=== PATIENT | female | born 1990 | race Caucasian/White ===

== ENCOUNTER 2020-08-25 17:34 | Emergency (ER) | payer SELFPAY ==
[2020-08-25 17:44] VITALS: BP 161/92; PULSE 99
--- NOTE | 2020-08-25 18:05 | EDM.PDOC ---
ED HPI GENERAL MEDICAL PROBLEM - General Chief Complaint: Upper Extremity Injury/Pain Stated Complaint: RT WRIST PAIN (FROM INJURY) Time Seen by Provider: 08/25/20 17:37 Source of Information: Reports: Patient History Limitations: Reports: No Limitations - History of Present Illness INITIAL COMMENTS - FREE TEXT/NARRATIVE: The patient presents withe right wrist pain and swelling. The patient said she let her dog out and he was on a bishop and he took off and pulled her off about 6 steps. This was on Tuesday. She did not hit her head or hurt her neck. She does have right wrist pain and swelling. She has been wearing a prefab velcro splint. She is right handed. She has no other injuries. Onset: Sudden Duration: Day(s): Location: Reports: Upper Extremity, Right (wrist) Quality: Reports: Sharp Severity: Moderate Improves with: Reports: None Worsens with: Reports: None Associated Symptoms: Reports: No Other Symptoms Right Wrist Pain Score (Numeric/FACES): 8 - Related Data Allergies Allergy/AdvReac Type Severity Reaction Status Date / Time No Known Allergies Allergy Verified 08/25/20 17:44 Home Meds: Home Meds . [No Known Home Meds] 08/25/20 [History] Past Medical History HEENT History: Reports: Impaired Vision Other HEENT History: glasses Neurological History: Reports: Migraines Dermatologic History: Reports: Eczema Social & Family History - Family History Family Medical History: No Pertinent Family History - Tobacco Use Tobacco Use Status *Q: Current Every Day Tobacco User Years of Tobacco use: 12 Packs/Tins Daily: 0.5 - Recreational Drug Use Recreational Drug Use: No - Living Situation & Occupation Living situation: Reports: Single Review of Systems - Review of Systems Review Of Systems: See Below Constitutional: Reports: No Symptoms Eyes: Reports: No Symptoms Ears: Reports: No Symptoms Nose: Reports: No Symptoms Mouth/Throat: Reports: No Symptoms Respiratory: Reports: No Symptoms Cardiovascular: Reports: No Symptoms GI/Abdominal: Reports: No Symptoms Genitourinary: Reports: No Symptoms Musculoskeletal: Reports: Other (wrist pain) ED EXAM, GENERAL - Physical Exam Exam: See Below Exam Limited By: No Limitations General Appearance: Alert, No Apparent Distress Ears: Normal External Exam Nose: Normal Inspection Head: Atraumatic, Normocephalic Neck: Normal Inspection, Supple, Non-Tender Respiratory/Chest: No Respiratory Distress, Lungs Clear, Normal Breath Sounds Cardiovascular: Regular Rate, Rhythm, No Edema, No Murmur GI/Abdominal: Soft, Non-Tender, No Organomegaly, No Mass Extremities: Other (Pain upon palpation to the right wrist with moderate edema. She has some numbnes in her fingers. She can move her fingers.) ED TRAUMA EXTREMITY PROCEDURES - Splinting Right Upper Extremity Splint Site: Right wrist Pre-Procedure NV Status: Normal Post-Procedure NV Status: Normal Splint Material: Fiberglass Splint Design: Volar, Sling Applied & Form Fitted By: Provider Provider Post-Splint Application NV Check: NV Status Normal, Good Position Complications: No Course - Vital Signs Last Recorded V/S: Last Vital Signs Temp 98.2 F 08/25/20 17:42 Pulse 99 08/25/20 17:42 Resp 16 08/25/20 17:42 BP 161/92 H 08/25/20 17:42 Pulse Ox 93 L 08/25/20 17:42 - Orders/Labs/Meds Orders: Active Orders 24 hr Category Date Time Status Wrist Comp Min 3V Rt [CR] Stat Exams 08/25/20 17:55 Taken - Re-Assessments/Exams Free Text/Narrative Re-Assessment/Exam: 08/25/20 18:05 I ordered an x-ray of her wrist. 08/25/20 18:26 Her x-ray shows a navicular bone fracture. I put a splint on her and sling. I will have her follow up with Dr Galvez. Departure - Departure Time of Disposition: 18:26 Disposition: Home, Self-Care 01 Condition: Good Clinical Impression: Fall Qualifiers: Encounter type: initial encounter Qualified Code(s): W19.XXXA - Unspecified fall, initial encounter Fracture of scaphoid of right wrist Qualifiers: Encounter type: initial encounter Scaphoid bone location: unspecified portion of scaphoid Fracture type: closed Fracture alignment: nondisplaced Qualified Code(s): S62.001A - Unspecified fracture of navicular [scaphoid] bone of right wrist, initial encounter for closed fracture - Discharge Information *PRESCRIPTION DRUG MONITORING PROGRAM REVIEWED*: Not Applicable *COPY OF PRESCRIPTION DRUG MONITORING REPORT IN PATIENT [place]: Not Applicable Referrals: PCP,Not In Area [Primary Care Provider] - Boaz Galvez MD [Physician] - 1 Week Forms: ED Department Discharge Additional Instructions: Ice your wrist for 15 minutes 3 times per day for 2 days. Take tylenol or motrin for pain. Follow up with Dr Galvez or one of his partners within a week. Please return if you are worse. Sepsis Event Note (ED) - Evaluation Sepsis Screening Result: No Definite Risk - Focused Exam Vital Signs: Vital Signs Temp Pulse Resp BP Pulse Ox 08/25/20 17:42 98.2 F 99 16 161/92 H 93 L - My Orders Last 24 Hours: My Active Orders 08/25/20 17:55 Wrist Comp Min 3V Rt [CR] Stat - Assessment/Plan Last 24 Hours: My Active Orders 08/25/20 17:55 Wrist Comp Min 3V Rt [CR] Stat
--- NOTE | 2020-08-26 08:07 | CR ---
Right wrist: 4 views of the right wrist were obtained. Comparison: No prior wrist exam is available. Joint spaces within the wrist are maintained. Small lucent line is identified within the mid one third navicular bone suspicious for nondisplaced fracture. Diffuse soft tissue swelling is seen. No additional fracture or other abnormality is appreciated. Impression: 1. Findings suspicious for nondisplaced navicular fracture. 2. Soft tissue swelling. Diagnostic code #3
== END 2020-08-25 18:34 | disposition home or self-care (01) ==
LOC: JD.ED 17:34
DX: S62.001A Unspecified fracture of navicular [scaphoid] bone of right wrist, initial encounter for closed fracture (principal); Z72.0 Tobacco use; W54.1XXA Struck by dog, initial encounter
CPT/HCPCS: 29125; 73110-26-RT; 73110-RT; 99283; 99283-25

== ENCOUNTER 2020-12-12 06:52 | Emergency (ER) | payer SELFPAY ==
[2020-12-12 07:21] VITALS: BP 139/88; PULSE 94
--- NOTE | 2020-12-12 07:29 | EDM.PDOC ---
ED HPI GENERAL MEDICAL PROBLEM - General Chief Complaint: Genitourinary Problem Stated Complaint: BACK PAIN Time Seen by Provider: 12/12/20 07:20 Source of Information: Reports: Patient, RN Notes Reviewed - History of Present Illness INITIAL COMMENTS - FREE TEXT/NARRATIVE: 30 yr old female concerned about bladder or possible kidney infection. Has had some voiding sx for about a week and now having pain to low mid back. Has had some nausea, vomited once this morning. No fever or chills. back Pain Score (Numeric/FACES): 7 - Related Data Allergies Allergy/AdvReac Type Severity Reaction Status Date / Time No Known Allergies Allergy Verified 12/12/20 07:21 Home Meds: Home Meds Cefdinir [Omnicef] 300 mg PO Q12HR #14 cap 12/12/20 [Rx] Hydrocodone/Acetaminophen [HYDROcodone-Acetaminophen 5-325 MG] 1 each PO Q6HR PRN #10 tablet 12/12/20 [Rx] Past Medical History HEENT History: Reports: Impaired Vision Other HEENT History: glasses Neurological History: Reports: Migraines Dermatologic History: Reports: Eczema Social & Family History - Family History Family Medical History: No Pertinent Family History - Tobacco Use Tobacco Use Status *Q: Current Every Day Tobacco User Years of Tobacco use: 5 Packs/Tins Daily: 0.2 - Recreational Drug Use Recreational Drug Use: No - Living Situation & Occupation Living situation: Reports: Single ED ROS GENERAL - Review of Systems Review Of Systems: See Below Constitutional: Denies: Fever, Chills, Diaphoresis HEENT: Reports: No Symptoms Respiratory: Reports: No Symptoms Cardiovascular: Reports: No Symptoms GI/Abdominal: Reports: Abdominal Pain (mild lower mid pelvic discomfort), Nausea, Vomiting : Reports: Dysuria, Frequency Musculoskeletal: Reports: Back Pain Skin: Reports: No Symptoms Neurological: Reports: No Symptoms ED EXAM, RENAL/ - Physical Exam Exam: See Below General Appearance: Alert, Mild Distress Throat/Mouth: Normal Inspection Head: Atraumatic Neck: Supple Respiratory/Chest: No Respiratory Distress, Lungs Clear, Normal Breath Sounds Cardiovascular: Regular Rate, Rhythm GI/Abdominal: Tender (very mild tenderness lower mid abd/pelvis, upper abd soft and nontender, RLQ nontender at time of exam) Back Exam: Paraspinal Tenderness (L low back). No: CVA Tenderness (R) Extremities: Normal Inspection, Normal Range of Motion, Non-Tender Skin Exam: Warm, Dry, Normal Color Course - Vital Signs Last Recorded V/S: Last Vital Signs Temp 96.8 F L 12/12/20 07:17 Pulse 94 12/12/20 07:17 Resp 18 12/12/20 07:17 BP 139/88 12/12/20 07:17 Pulse Ox 100 12/12/20 07:17 - Orders/Labs/Meds Orders: Active Orders 24 hr Category Date Time Status CULTURE URINE [MREF] Stat Lab 12/12/20 08:30 Received Peripheral IV Insertion Adult [OM.PC] Stat Oth 12/12/20 09:40 Ordered Labs: Laboratory Tests 12/12/20 12/12/20 Range/Units 08:10 08:30 WBC 9.45 (3.98-10.04) K/mm3 RBC 4.17 (3.98-5.22) M/mm3 Hgb 14.2 (11.2-15.7) gm/dl Hct 41.9 (34.1-44.9) % MCV 100.5 H D (79.4-94.8) fl MCH 34.1 H (25.6-32.2) pg MCHC 33.9 (32.2-35.5) g/dl RDW Std Deviation 45.5 (36.4-46.3) fL Plt Count 233 (182-369) K/mm3 MPV 10.1 (9.4-12.3) fl Neut % (Auto) 74.2 H (34.0-71.1) % Lymph % (Auto) 17.0 L (19.3-51.7) % [place] % (Auto) 7.2 (4.7-12.5) % Eos % (Auto) 1.1 (0.7-5.8) Baso % (Auto) 0.3 (0.1-1.2) % Neut # (Auto) 7.01 H (1.56-6.13) K/mm3 Lymph # (Auto) 1.61 (1.18-3.74) K/mm3 [place] # (Auto) 0.68 H (0.24-0.36) K/mm3 Eos # (Auto) 0.10 (0.04-0.36) K/mm3 Baso # (Auto) 0.03 (0.01-0.08) K/mm3 Urine Color Yellow (Yellow) Urine Appearance Cloudy H (Clear) Urine pH 7.5 (5.0-8.0) Ur Specific [place] 1.025 (1.005-1.030) Urine Protein 3+ H (Negative) Urine Glucose (UA) Negative (Negative) Urine Ketones Negative (Negative) Urine Occult Blood 3+ H (Negative) Urine Nitrite Negative (Negative) Urine Bilirubin Negative (Negative) Urine Urobilinogen 0.2 (0.2-1.0) Ur Leukocyte Esterase 2+ H (Negative) Urine RBC 20-30 H (0-5) /hpf Urine WBC 40-50 H (0-5) /hpf Ur Epithelial Cells 5-10 H (0-5) /hpf Urine Bacteria Moderate H (FEW) /hpf Urine Mucus Not seen (FEW) /hpf Meds: Medications Discontinued Medications Generic Name Dose Route Start Last Admin Trade Name Freq PRN Reason Stop Dose Admin Hydromorphone HCl 0.5 mg 12/12/20 09:40 12/12/20 09:49 Hydromorphone 0.5 Mg/0.5 Ml Syringe IVPUSH 12/12/20 09:41 0.5 mg ONETIME ONE Administration Ceftriaxone Sodium 1 gm/ 100 mls @ 200 mls/hr 12/12/20 09:40 12/12/20 09:48 Sodium Chloride IV 12/12/20 10:09 200 mls/hr ONETIME ONE Administration Ondansetron HCl 4 mg 12/12/20 07:39 12/12/20 07:47 Ondansetron 4 Mg Tab.Dis PO 12/12/20 07:40 4 mg ONETIME ONE Administration Sodium Chloride 10 ml 12/12/20 09:40 12/12/20 09:49 Sodium Chloride 0.9% 10 Ml Syringe FLUSH 10 ml ASDIRECTED PRN Administration Keep Vein Open - Re-Assessments/Exams Free Text/Narrative Re-Assessment/Exam: 12/12/20 10:58 Pt does have UTI, WBC is OK, have given 1 gram rocephing IV, urine culture ordered. Departure - Departure Time of Disposition: 10:19 Disposition: Home, Self-Care 01 Condition: Fair Clinical Impression: UTI, Urinary tract infectious disease, Back pain - Discharge Information Prescriptions: Hydrocodone/Acetaminophen [HYDROcodone-Acetaminophen 5-325 MG] 1 each PO Q6HR PRN #10 tablet PRN Reason: Pain Cefdinir [Omnicef] 300 mg PO Q12HR #14 cap Instructions: Urinary Tract Infection, Adult Referrals: PCP,None [Primary Care Provider] - Forms: ED Department Discharge Additional Instructions: Drink plenty of water to maintain hydration. Cefdinir 300 mg twice daily for 1 week. Tylenol for mild to moderate pain or hydrocodone if needed for more severe pain. Prescriptions have been sent to [facility] on [address]. Follow up with your clinic provider in about 4 to 5 days for recheck. Urine culture has been done. Return to ED as needed. Sepsis Event Note (ED) - Evaluation Sepsis Screening Result: No Definite Risk - Focused Exam Vital Signs: Vital Signs Temp Pulse Resp BP Pulse Ox 12/12/20 07:17 96.8 F L 94 18 139/88 100 - My Orders Last 24 Hours: My Active Orders 12/12/20 08:30 CULTURE URINE [MREF] Stat 12/12/20 09:40 Peripheral IV Insertion Adult [OM.PC] Stat - Assessment/Plan Last 24 Hours: My Active Orders 12/12/20 08:30 CULTURE URINE [MREF] Stat 12/12/20 09:40 Peripheral IV Insertion Adult [OM.PC] Stat
[2020-12-12] MEDS ORDERED: Ondansetron 4 MG Tab.DIS PO ONE (07:39)
[2020-12-12] MEDS ORDERED: HYDROmorphone 0.5 MG/0.5 ML Syringe IVPUSH ONE (09:40)
[2020-12-12] MEDS ORDERED: cefTRIAXone 1 GM in Sodium Chloride 0.9% 100 ML IV ONE (09:40)
[2020-12-12] MEDS ORDERED: Sodium Chloride 0.9% 10 ML Syringe FLUSH PRN (09:40)
== END 2020-12-12 10:33 | disposition home or self-care (01) ==
LOC: JD.ED 06:52
DX: N39.0 Urinary tract infection, site not specified (principal); Z72.0 Tobacco use
CPT/HCPCS: 36415; 81001; 85025; 87086; 87088; 87186; 96365; 96375; 99284; A9270; J0696; J1170; 99283

== ENCOUNTER 2022-04-02 07:09 | Emergency (ER) | payer BC ==
[2022-04-02 07:35] VITALS: BP 145/98; PULSE 94
[2022-04-02 08:30] LABS: CORONAVIRUS COVID-19 NAA NEGATIVE (NEGATIVE)
[2022-04-02] MEDS ORDERED: Albuterol/Ipratropium 3.0-0.5 MG/3 ML Neb Soln NEB ONE (08:47)
[2022-04-02] MEDS ORDERED: Cefdinir 300 MG Cap PO ONE (08:47)
[2022-04-02] MEDS ORDERED: predniSONE 20 MG Tab PO ONE (08:47)
== END 2022-04-02 10:05 | disposition home or self-care (01) ==
LOC: JD.ED 07:09
DX: J18.9 Pneumonia, unspecified organism (principal); N39.0 Urinary tract infection, site not specified; F17.210 Nicotine dependence, cigarettes, uncomplicated; Z79.899 Other long term (current) drug therapy; Z20.822 Contact with and (suspected) exposure to COVID-19
CPT/HCPCS: 0241U; 94640; 99285; A9270; J7512; J7620-GY

== ENCOUNTER 2022-08-15 14:36 | Emergency (ER) | payer SELFPAY ==
[2022-08-15] MEDS ORDERED: LORazepam 2 MG/ML SDV IVPUSH ONE (15:30)
[2022-08-15] MEDS ORDERED: Sodium Chloride 0.9% 10 ML Syringe FLUSH PRN (15:30)
[2022-08-15] MEDS ORDERED: Potassium Chloride 20 MEQ Tab.ER PO ONE ×2 (16:56→21:30)
[2022-08-15] MEDS ORDERED: Magnesium Sulfate/Water 4 GM in Premix Bag 1 BAG IV ONE (16:57)
[2022-08-15] MEDS ORDERED: Sodium Chloride 0.9% 1,000 ML IV STA (16:58)
[2022-08-15] MEDS: Potassium Chloride 10 MEQ in Premix Bag 1 BAG IV SCH ×6 (17:35→23:32)
[2022-08-16 00:48] VITALS: BP 130/100; PULSE 85
== END 2022-08-16 02:00 | disposition home or self-care (01) ==
LOC: JD.ED 14:36
DX: E87.6 Hypokalemia (principal); E83.42 Hypomagnesemia; Z87.891 Personal history of nicotine dependence; Z77.22 Contact with and (suspected) exposure to environmental tobacco smoke (acute) (chronic)
CPT/HCPCS: 36415; 80053; 83735; 84132; 85025; 93005; 96361; 96365; 96366; 96367; 96368; 96375; 99283; A9270; J2060; J3475; J3480; J3490; J7030; 93010; 99284

== ENCOUNTER 2022-08-24 05:03 | Emergency (ER) | payer SELFPAY ==
[2022-08-24 05:23] VITALS: BP 126/80; PULSE 90
[2022-08-24] MEDS ORDERED: Acetaminophen/HYDROcodone 325-5 MG Tab PO ONE (07:52)
== END 2022-08-24 08:37 | disposition home or self-care (01) ==
LOC: JD.ED 05:03
DX: S62.001A Unspecified fracture of navicular [scaphoid] bone of right wrist, initial encounter for closed fracture (principal); Z72.0 Tobacco use; W00.0XXA Fall on same level due to ice and snow, initial encounter
CPT/HCPCS: 29125; 73110; 73130; 99283; A9270

== ENCOUNTER 2022-09-19 13:41 | Emergency (ER) | payer SELFPAY ==
[2022-09-19 13:52] VITALS: BP 132/87; PULSE 122
== END 2022-09-19 16:36 | disposition home or self-care (01) ==
LOC: JD.ED 13:41
DX: S16.1XXA Strain of muscle, fascia and tendon at neck level, initial encounter (principal); S39.012A Strain of muscle, fascia and tendon of lower back, initial encounter; Z72.0 Tobacco use; W18.30XA Fall on same level, unspecified, initial encounter
CPT/HCPCS: 70450; 70450-26; 72100; 72100-26; 72125; 72125-26; 99283; 99284

== ENCOUNTER 2022-09-23 11:16 | Emergency (ER) | payer SELFPAY ==
[2022-09-23] MEDS ORDERED: Potassium Chloride 20 MEQ Tab.ER PO ONE ×2 (12:20→14:03)
[2022-09-23 15:26] VITALS: BP 122/70; PULSE 87
== END 2022-09-23 15:26 | disposition home or self-care (01) ==
LOC: JD.ED 11:16
DX: E87.6 Hypokalemia (principal); F10.920 Alcohol use, unspecified with intoxication, uncomplicated; F17.210 Nicotine dependence, cigarettes, uncomplicated; Y90.0 Blood alcohol level of less than 20 mg/100 ml
CPT/HCPCS: 36415; 80053; 80307; 81003; 85025; 99283; A9270; 99284

== ENCOUNTER 2022-10-05 14:06 | Inpatient (IN) | payer SELFPAY ==
[2022-10-05] MEDS ORDERED: Sodium Chloride 0.9% 10 ML Syringe FLUSH PRN (14:38)
[2022-10-05] MEDS ORDERED: Sodium Chloride 0.9% 1,000 ML IV ONE (14:39)
[2022-10-05 15:41] LABS: BASOPHILS ABSOLUTE AUTO 0.03 K/mm3 (0.01-0.08); BASOPHILS PERCENT AUTO 0.2 % (0.1-1.2); EOSINOPHILS ABSOLUTE AUTO 0.05 K/mm3 (0.04-0.36); EOSINOPHILS PERCENT AUTO 0.4 (0.7-5.8); HEMATOCRIT 37.7 % (34.1-44.9); HEMOGLOBIN 13.2 gm/dl (11.2-15.7); IMMATURE GRAN ABSOLUTE AUTO 0.03 K/mm3 (0.00-0.10); IMMATURE GRAN PERCENT AUTO 0.2 % (<=1.0); LYMPHOCYTES ABSOLUTE AUTO 1.69 K/mm3 (1.18-3.74); LYMPHOCYTES PERCENT AUTO 13.2 % (19.3-51.7); MEAN CORPUSCULAR HEMOGLOBIN 36.3 pg (25.6-32.2); MEAN CORPUSCULAR VOLUME 103.6 fl (79.4-94.8); MEAN PLATELET VOLUME 10.3 fl (9.4-12.3); MONOCYTES ABSOLUTE AUTO 1.27 K/mm3 (0.24-0.36); MONOCYTES PERCENT AUTO 9.9 % (4.7-12.5); NEUTROPHILS ABSOLUTE AUTO 9.71 K/mm3 (1.56-6.13); NEUTROPHILS PERCENT AUTO 76.1 % (34.0-71.1); PLATELET COUNT,PLT 312 K/mm3 (182-369); RED BLOOD CELL COUNT 3.64 M/mm3 (3.98-5.22); WHITE BLOOD CELL COUNT,WBC 12.78 K/mm3 (3.98-10.04)
[2022-10-05] MEDS ORDERED: LORazepam 2 MG/ML SDV IVPUSH ONE ×3 (16:12→21:50)
[2022-10-05 16:14] LABS: A/G RATIO 0.6 (1-2); ALBUMIN 2.8 g/dl (3.4-5.0); ANION GAP 19.8 (5-15); BILIRUBIN TOTAL 1.1 mg/dL (0.2-1.0); BUN/CREATININE RATIO 11.3 (14-18); C-REACTIVE PROTEIN 4.5 mg/dL (<1.0); CALCIUM 8.5 mg/dL (8.5-10.1); CREATININE 0.8 mg/dL (0.55-1.02); EST CRCL DRUG DOSING (CG) 87.18 mL/min; MAGNESIUM 1.7 mg/dL (1.8-2.4); POTASSIUM,K 2.8 mEq/L (3.5-5.1); PROTEIN TOTAL,TP 7.6 g/dl (6.4-8.2); TSH 4.549 uIU/mL (0.358-3.74)
[2022-10-05] MEDS ORDERED: Magnesium Sulfate/Water 2 GM in Premix Bag 1 BAG IV ONE (16:21)
[2022-10-05] MEDS ORDERED: Potassium Chloride 20 MEQ Tab.ER PO ONE (16:21)
[2022-10-05] MEDS ORDERED: Thiamine 100 MG Tab PO ONE (16:58)
[2022-10-05] MEDS ORDERED: Folic Acid 1 MG Tab PO ONE (16:59)
[2022-10-05] MEDS ORDERED: NS + KCl 20mEq/L 1,000 ML IV SCH (17:15)
[2022-10-05] MEDS ORDERED: Cyanocobalamin (Vitamin B12) 1,000 MCG/ML SDV IM ONE (20:14)
[2022-10-05] MEDS: NS + KCl 20mEq/L 1,000 ML IV SCH (20:51)
[2022-10-05] MEDS: LORazepam 2 MG/ML SDV IV SCH ×2 (21:38→23:17)
[2022-10-06] MEDS: NS + KCl 20mEq/L 1,000 ML IV SCH ×3 (00:55→19:59)
[2022-10-06] MEDS: LORazepam 2 MG/ML SDV IV SCH ×6 (03:03→20:57)
[2022-10-06 05:08] LABS: MEAN CORPUSCULAR HEMOGLOBIN 35.9 pg (25.6-32.2); MEAN CORPUSCULAR HGB CONC 33.7 g/dl (32.2-35.5); MEAN CORPUSCULAR VOLUME 106.8 fl (79.4-94.8); MEAN PLATELET VOLUME 10.2 fl (9.4-12.3); PLATELET COUNT,PLT 228 K/mm3 (182-369); RED BLOOD CELL COUNT 2.81 M/mm3 (3.98-5.22); WHITE BLOOD CELL COUNT,WBC 8.05 K/mm3 (3.98-10.04)
[2022-10-06] MEDS ORDERED: Pantoprazole 40 MG Tab.CR PO SCH (06:00)
[2022-10-06 06:04] LABS: A/G RATIO 0.6 (1-2); ANION GAP 14.3 (5-15); BILIRUBIN TOTAL 0.7 mg/dL (0.2-1.0); BUN/CREATININE RATIO 13.3 (14-18); CALCIUM 7.2 mg/dL (8.5-10.1); CREATININE 0.6 mg/dL (0.55-1.02); EST CRCL DRUG DOSING (CG) 116.24 mL/min; MAGNESIUM 2.5 mg/dL (1.8-2.4); PROTEIN TOTAL,TP 5.5 g/dl (6.4-8.2)
[2022-10-06 06:08] LABS: HEMOGLOBIN 10.1 gm/dl (11.2-15.7)
[2022-10-06] MEDS: Pantoprazole 40 MG Vial IVPUSH SCH (06:40)
[2022-10-06 07:28] LABS: POTASSIUM,K 4.3 mEq/L (3.5-5.1)
[2022-10-06] MEDS: Thiamine 200 MG/2 ML MDV IVPUSH SCH (08:39)
[2022-10-06] MEDS: Folic Acid 1 MG Tab PO SCH (08:40)
[2022-10-06] MEDS: Enoxaparin 40 MG/0.4 ML Syringe SUBCUT SCH (08:40)
[2022-10-06 19:52] LABS: APPEARANCE,URINE SLT CLOUDY (Clear); BILIRUBIN,URINE 1+ (Negative); COLOR,URINE YELLOW (Yellow); GLUCOSE,URINE NEGATIVE (Negative); KETONES,URINE NEGATIVE (Negative); LEUKOCYTE ESTERASE,URINE TRACE (Negative); NITRITE,URINE NEGATIVE (Negative); OCCULT BLOOD,URINE NEGATIVE (Negative); PROTEIN,URINE 1+ (Negative); UROBILINOGEN,URINE 0.2 (0.2-1.0)
[2022-10-06 20:02] LABS: BARBITURATE SCREEN,URINE NEGATIVE (CUTOFF=200); BENZODIAZEPINES SCREEN,URINE PRESUMPTIVE POSITIVE (CUTOFF=150); BUPRENORPHINE SCREEN,URINE NEGATIVE (CUTOFF=10); METHADONE SCREEN, URINE NEGATIVE (CUTOFF=200); METHAMPHETAMINES SCREEN, URINE NEGATIVE (CUTOFF=500); OXYCODONE SCREEN,URINE NEGATIVE (CUT0FF=100); PROPOXYPHENE SCREEN,URINE NEGATIVE (CUTOFF=300); THC SCREEN,URINE 20 NG/ML NEGATIVE (CUTOFF=50)
[2022-10-06 20:08] LABS: AMPHETAMINES SCREEN, URINE NEGATIVE (CUTOFF=500)
[2022-10-06 20:10] LABS: BACTERIA,URINE FEW /hpf (FEW)
[2022-10-06 20:11] LABS: MUCUS,URINE MANY /hpf (FEW); RBC,URINE 0-5 /hpf (0-5)
[2022-10-07] MEDS: LORazepam 2 MG/ML SDV IV SCH ×11 (00:56→22:45)
[2022-10-07] MEDS: NS + KCl 20mEq/L 1,000 ML IV SCH ×2 (05:25→15:30)
[2022-10-07 07:25] LABS: A/G RATIO 0.6 (1-2); ALBUMIN 2.1 g/dl (3.4-5.0); ANION GAP 13.5 (5-15); BILIRUBIN TOTAL 0.8 mg/dL (0.2-1.0); CALCIUM 7.4 mg/dL (8.5-10.1); CREATININE 0.5 mg/dL (0.55-1.02); EST CRCL DRUG DOSING (CG) 140.5 mL/min; MAGNESIUM 2.1 mg/dL (1.8-2.4); POTASSIUM,K 4.5 mEq/L (3.5-5.1); PROTEIN TOTAL,TP 5.7 g/dl (6.4-8.2)
[2022-10-07 07:34] LABS: HEMATOCRIT 31.6 % (34.1-44.9); HEMOGLOBIN 10.4 gm/dl (11.2-15.7); MEAN CORPUSCULAR HEMOGLOBIN 35.9 pg (25.6-32.2); MEAN CORPUSCULAR HGB CONC 32.9 g/dl (32.2-35.5); MEAN PLATELET VOLUME 10.4 fl (9.4-12.3); PLATELET COUNT,PLT 228 K/mm3 (182-369); WHITE BLOOD CELL COUNT,WBC 8.61 K/mm3 (3.98-10.04)
[2022-10-07] MEDS: Thiamine 200 MG/2 ML MDV IVPUSH SCH (09:08)
[2022-10-07] MEDS: Pantoprazole 40 MG Vial IVPUSH SCH (09:08)
[2022-10-07] MEDS: Enoxaparin 40 MG/0.4 ML Syringe SUBCUT SCH (09:09)
[2022-10-07] MEDS: Folic Acid 1 MG Tab PO SCH ×2 (09:51→14:38)
[2022-10-07] MEDS ORDERED: Ondansetron 4 MG/2 ML SDV IVPUSH PRN (14:28)
[2022-10-07] MEDS: Ondansetron 4 MG/2 ML SDV IVPUSH PRN (14:49)
[2022-10-07] MEDS: Nicotine 14 MG/24 Hr Patch TRDERM SCH (19:55)
[2022-10-08] MEDS: LORazepam 2 MG/ML SDV IV SCH ×6 (01:01→22:50)
[2022-10-08] MEDS: NS + KCl 20mEq/L 1,000 ML IV SCH ×3 (03:09→23:45)
[2022-10-08] MEDS: fentaNYL 100 MCG/2 ML SDV IVPUSH PRN ×2 (03:18→23:14)
[2022-10-08] MEDS: Ondansetron 4 MG/2 ML SDV IVPUSH PRN (05:54)
[2022-10-08 06:42] LABS: HEMATOCRIT 34.2 % (34.1-44.9); HEMOGLOBIN 11.2 gm/dl (11.2-15.7); MEAN CORPUSCULAR HGB CONC 32.7 g/dl (32.2-35.5); MEAN CORPUSCULAR VOLUME 106.9 fl (79.4-94.8); MEAN PLATELET VOLUME 10.2 fl (9.4-12.3); PLATELET COUNT,PLT 256 K/mm3 (182-369); WHITE BLOOD CELL COUNT,WBC 10.78 K/mm3 (3.98-10.04)
[2022-10-08 07:21] LABS: A/G RATIO 0.6 (1-2); ALBUMIN 2.4 g/dl (3.4-5.0); ANION GAP 13.9 (5-15); BILIRUBIN TOTAL 0.7 mg/dL (0.2-1.0); CALCIUM 8.5 mg/dL (8.5-10.1); CREATININE 0.5 mg/dL (0.55-1.02); EST CRCL DRUG DOSING (CG) 140.5 mL/min; PROTEIN TOTAL,TP 6.7 g/dl (6.4-8.2)
[2022-10-08 07:29] LABS: POTASSIUM,K 4.9 mEq/L (3.5-5.1)
[2022-10-08] MEDS ORDERED: cloNIDine 0.1 MG Tab PO SCH ×2 (08:30→16:00)
[2022-10-08] MEDS: Folic Acid 1 MG Tab PO SCH (08:30)
[2022-10-08] MEDS: Enoxaparin 40 MG/0.4 ML Syringe SUBCUT SCH (08:30)
[2022-10-08] MEDS: Pantoprazole 40 MG Vial IVPUSH SCH (08:31)
[2022-10-08] MEDS: Thiamine 200 MG/2 ML MDV IVPUSH SCH (08:40)
[2022-10-08] MEDS: Nicotine 14 MG/24 Hr Patch TRDERM SCH (08:53)
[2022-10-08] MEDS: LORazepam 1 MG Tab PO SCH ×3 (09:56→16:04)
[2022-10-08] MEDS: chlordiazePOXIDE 10 MG Cap PO SCH (13:28)
[2022-10-08] MEDS: oxyCODONE 5 MG Tab PO PRN (13:43)
[2022-10-08] MEDS: cloNIDine 0.1 MG Tab PO SCH ×2 (14:11→21:40)
[2022-10-09] MEDS: oxyCODONE 5 MG Tab PO PRN ×2 (04:33→20:47)
[2022-10-09 05:33] LABS: A/G RATIO 0.5 (1-2); ALBUMIN 2.3 g/dl (3.4-5.0); ANION GAP 15.9 (5-15); BILIRUBIN TOTAL 0.5 mg/dL (0.2-1.0); CALCIUM 8.8 mg/dL (8.5-10.1); CREATININE 0.6 mg/dL (0.55-1.02); EST CRCL DRUG DOSING (CG) 117.08 mL/min; POTASSIUM,K 4.9 mEq/L (3.5-5.1); PROTEIN TOTAL,TP 6.6 g/dl (6.4-8.2)
[2022-10-09] MEDS: cloNIDine 0.1 MG Tab PO SCH ×3 (06:24→20:48)
[2022-10-09] MEDS: LORazepam 1 MG Tab PO SCH ×2 (07:47→17:20)
[2022-10-09] MEDS: Folic Acid 1 MG Tab PO SCH (08:27)
[2022-10-09] MEDS: Thiamine 100 MG Tab PO SCH (08:27)
[2022-10-09] MEDS: chlordiazePOXIDE 10 MG Cap PO SCH (08:27)
[2022-10-09] MEDS: Enoxaparin 40 MG/0.4 ML Syringe SUBCUT SCH (08:27)
[2022-10-09] MEDS: Pantoprazole 40 MG Vial IVPUSH SCH (08:28)
[2022-10-09] MEDS: Nicotine 14 MG/24 Hr Patch TRDERM SCH (08:31)
[2022-10-10] MEDS: cloNIDine 0.1 MG Tab PO SCH ×4 (00:50→22:27)
[2022-10-10] MEDS: LORazepam 1 MG Tab PO SCH ×3 (03:13→22:46)
[2022-10-10] MEDS: Enoxaparin 40 MG/0.4 ML Syringe SUBCUT SCH (08:37)
[2022-10-10] MEDS: Nicotine 14 MG/24 Hr Patch TRDERM SCH (08:37)
[2022-10-10] MEDS: Thiamine 100 MG Tab PO SCH (08:37)
[2022-10-10] MEDS: chlordiazePOXIDE 10 MG Cap PO SCH (08:37)
[2022-10-10] MEDS: Folic Acid 1 MG Tab PO SCH (08:37)
[2022-10-10] MEDS: Pantoprazole 40 MG Vial IVPUSH SCH (08:37)
[2022-10-10] MEDS: Acetaminophen 325 MG Tab PO PRN (23:51)
[2022-10-11] MEDS: Acetaminophen 325 MG Tab PO PRN (04:31)
[2022-10-11] MEDS: LORazepam 1 MG Tab PO SCH (04:31)
[2022-10-11] MEDS: cloNIDine 0.1 MG Tab PO SCH ×3 (07:06→21:36)
[2022-10-11] MEDS: Enoxaparin 40 MG/0.4 ML Syringe SUBCUT SCH (08:18)
[2022-10-11] MEDS: Nicotine 14 MG/24 Hr Patch TRDERM SCH (08:19)
[2022-10-11] MEDS: Thiamine 100 MG Tab PO SCH (08:19)
[2022-10-11] MEDS: chlordiazePOXIDE 10 MG Cap PO SCH (08:19)
[2022-10-11] MEDS: Folic Acid 1 MG Tab PO SCH (08:19)
[2022-10-11] MEDS: Pantoprazole 40 MG Vial IVPUSH SCH (08:19)
[2022-10-11] MEDS ORDERED: Gadobenate Dimeglumine 529 MG/ML 15 ML SDV IVPUSH ONE (09:45)
[2022-10-11] MEDS ORDERED: Sodium Chloride 0.9% 10 ML Syringe FLUSH SCH (09:45)
[2022-10-11] MEDS ORDERED: cloNIDine 0.1 MG Tab PO SCH (14:00)
[2022-10-11] MEDS: oxyCODONE 5 MG Tab PO PRN (21:40)
[2022-10-12] MEDS: Acetaminophen 325 MG Tab PO PRN (02:16)
[2022-10-12 08:06] LABS: BASOPHILS ABSOLUTE AUTO 0.03 K/mm3 (0.01-0.08); BASOPHILS PERCENT AUTO 0.2 % (0.1-1.2); EOSINOPHILS ABSOLUTE AUTO 0.31 K/mm3 (0.04-0.36); EOSINOPHILS PERCENT AUTO 2.3 (0.7-5.8); HEMATOCRIT 39.9 % (34.1-44.9); HEMOGLOBIN 13.3 gm/dl (11.2-15.7); IMMATURE GRAN ABSOLUTE AUTO 0.07 K/mm3 (0.00-0.10); IMMATURE GRAN PERCENT AUTO 0.5 % (<=1.0); LYMPHOCYTES ABSOLUTE AUTO 3.43 K/mm3 (1.18-3.74); LYMPHOCYTES PERCENT AUTO 25.9 % (19.3-51.7); MEAN CORPUSCULAR HEMOGLOBIN 35.7 pg (25.6-32.2); MEAN CORPUSCULAR HGB CONC 33.3 g/dl (32.2-35.5); MEAN PLATELET VOLUME 9.9 fl (9.4-12.3); MONOCYTES ABSOLUTE AUTO 0.96 K/mm3 (0.24-0.36); MONOCYTES PERCENT AUTO 7.3 % (4.7-12.5); NEUTROPHILS ABSOLUTE AUTO 8.42 K/mm3 (1.56-6.13); NEUTROPHILS PERCENT AUTO 63.8 % (34.0-71.1); PLATELET COUNT,PLT 366 K/mm3 (182-369); RED BLOOD CELL COUNT 3.73 M/mm3 (3.98-5.22); WHITE BLOOD CELL COUNT,WBC 13.22 K/mm3 (3.98-10.04)
[2022-10-12] MEDS: chlordiazePOXIDE 10 MG Cap PO SCH (08:39)
[2022-10-12] MEDS: Pantoprazole 40 MG Vial IVPUSH SCH (08:39)
[2022-10-12] MEDS: Enoxaparin 40 MG/0.4 ML Syringe SUBCUT SCH (08:39)
[2022-10-12] MEDS: Folic Acid 1 MG Tab PO SCH (08:39)
[2022-10-12] MEDS: Thiamine 100 MG Tab PO SCH (08:40)
[2022-10-12] MEDS: cloNIDine 0.1 MG Tab PO SCH ×2 (08:40→20:50)
[2022-10-12] MEDS: Nicotine 14 MG/24 Hr Patch TRDERM SCH (08:40)
[2022-10-12 08:42] LABS: ANION GAP 13.7 (5-15); BUN/CREATININE RATIO 16.7 (14-18); CALCIUM 9.3 mg/dL (8.5-10.1); CREATININE 0.6 mg/dL (0.55-1.02); EST CRCL DRUG DOSING (CG) 117.08 mL/min; POTASSIUM,K 3.7 mEq/L (3.5-5.1)
[2022-10-12] MEDS: Multivitamin Tab PO SCH (09:38)
[2022-10-12] MEDS: oxyCODONE 5 MG Tab PO PRN (09:38)
[2022-10-13] MEDS: Acetaminophen 325 MG Tab PO PRN (00:21)
[2022-10-13] MEDS: Pantoprazole 40 MG Tab.CR PO SCH (05:58)
[2022-10-13] MEDS: oxyCODONE 5 MG Tab PO PRN ×3 (05:58→20:25)
[2022-10-13 06:23] LABS: BASOPHILS ABSOLUTE AUTO 0.03 K/mm3 (0.01-0.08); BASOPHILS PERCENT AUTO 0.2 % (0.1-1.2); EOSINOPHILS ABSOLUTE AUTO 0.39 K/mm3 (0.04-0.36); EOSINOPHILS PERCENT AUTO 2.8 (0.7-5.8); HEMATOCRIT 39.1 % (34.1-44.9); HEMOGLOBIN 12.8 gm/dl (11.2-15.7); IMMATURE GRAN ABSOLUTE AUTO 0.06 K/mm3 (0.00-0.10); IMMATURE GRAN PERCENT AUTO 0.4 % (<=1.0); LYMPHOCYTES ABSOLUTE AUTO 3.15 K/mm3 (1.18-3.74); LYMPHOCYTES PERCENT AUTO 22.6 % (19.3-51.7); MEAN CORPUSCULAR HEMOGLOBIN 34.6 pg (25.6-32.2); MEAN CORPUSCULAR HGB CONC 32.7 g/dl (32.2-35.5); MEAN CORPUSCULAR VOLUME 105.7 fl (79.4-94.8); MEAN PLATELET VOLUME 10.3 fl (9.4-12.3); MONOCYTES PERCENT AUTO 10.8 % (4.7-12.5); NEUTROPHILS ABSOLUTE AUTO 8.82 K/mm3 (1.56-6.13); NEUTROPHILS PERCENT AUTO 63.2 % (34.0-71.1); PLATELET COUNT,PLT 303 K/mm3 (182-369); WHITE BLOOD CELL COUNT,WBC 13.95 K/mm3 (3.98-10.04)
[2022-10-13 06:42] LABS: BUN/CREATININE RATIO 13.3 (14-18); CREATININE 0.6 mg/dL (0.55-1.02); EST CRCL DRUG DOSING (CG) 117.08 mL/min
[2022-10-13 07:25] LABS: CALCIUM 5.5 mg/dL (8.5-10.1)
[2022-10-13] MEDS: chlordiazePOXIDE 10 MG Cap PO SCH (08:14)
[2022-10-13] MEDS: Enoxaparin 40 MG/0.4 ML Syringe SUBCUT SCH (08:14)
[2022-10-13] MEDS: Nicotine 14 MG/24 Hr Patch TRDERM SCH (08:14)
[2022-10-13] MEDS: Thiamine 100 MG Tab PO SCH (08:15)
[2022-10-13] MEDS: Folic Acid 1 MG Tab PO SCH (08:15)
[2022-10-13] MEDS: Multivitamin Tab PO SCH (08:15)
[2022-10-13] MEDS: cloNIDine 0.1 MG Tab PO SCH ×2 (08:15→20:25)
[2022-10-13] MEDS ORDERED: Sodium Polystyrene Sulfonate 15 GM/60 ML Susp 60 ML Bot PO ONE (11:15)
[2022-10-13 11:17] LABS: APPEARANCE,URINE CLEAR (Clear); BILIRUBIN,URINE NEGATIVE (Negative); COLOR,URINE YELLOW (Yellow); GLUCOSE,URINE NEGATIVE (Negative); KETONES,URINE NEGATIVE (Negative); LEUKOCYTE ESTERASE,URINE 3+ (Negative); NITRITE,URINE POSITIVE (Negative); OCCULT BLOOD,URINE NEGATIVE (Negative); PROTEIN,URINE NEGATIVE (Negative); UROBILINOGEN,URINE 0.2 (0.2-1.0)
[2022-10-13 11:22] LABS: BARBITURATE SCREEN,URINE NEGATIVE (CUTOFF=200); BENZODIAZEPINES SCREEN,URINE PRESUMPTIVE POSITIVE (CUTOFF=150); BUPRENORPHINE SCREEN,URINE NEGATIVE (CUTOFF=10); METHADONE SCREEN, URINE NEGATIVE (CUTOFF=200); METHAMPHETAMINES SCREEN, URINE NEGATIVE (CUTOFF=500); OXYCODONE SCREEN,URINE PRESUMPTIVE POSITIVE (CUT0FF=100); PROPOXYPHENE SCREEN,URINE NEGATIVE (CUTOFF=300); THC SCREEN,URINE 20 NG/ML NEGATIVE (CUTOFF=50)
[2022-10-13 11:27] LABS: AMPHETAMINES SCREEN, URINE NEGATIVE (CUTOFF=500)
[2022-10-13] MEDS: Calcium Carbonate/Vitamin D3 600 MG-200 Units Tab PO SCH ×2 (11:42→18:02)
[2022-10-13 12:46] LABS: BACTERIA,URINE MODERATE /hpf (FEW); MUCUS,URINE FEW /hpf (FEW); RBC,URINE 0-5 /hpf (0-5)
[2022-10-13 18:22] LABS: A/G RATIO 0.6 (1-2); ALBUMIN 3.2 g/dl (3.4-5.0); BILIRUBIN TOTAL 0.4 mg/dL (0.2-1.0); BUN/CREATININE RATIO 13.3 (14-18); CALCIUM 9.9 mg/dL (8.5-10.1); CREATININE 0.6 mg/dL (0.55-1.02); EST CRCL DRUG DOSING (CG) 117.08 mL/min; PROTEIN TOTAL,TP 8.4 g/dl (6.4-8.2)
[2022-10-14] MEDS: Acetaminophen 325 MG Tab PO PRN (01:52)
[2022-10-14] MEDS: oxyCODONE 5 MG Tab PO PRN ×3 (04:31→20:47)
[2022-10-14] MEDS: Pantoprazole 40 MG Tab.CR PO SCH ×2 (04:34→06:11)
[2022-10-14 05:54] LABS: ANION GAP 20.6 (5-15); BUN/CREATININE RATIO 16.7 (14-18); CALCIUM 9.9 mg/dL (8.5-10.1); CREATININE 0.6 mg/dL (0.55-1.02); EST CRCL DRUG DOSING (CG) 117.08 mL/min; POTASSIUM,K 3.6 mEq/L (3.5-5.1)
[2022-10-14 06:01] LABS: BASOPHILS ABSOLUTE AUTO 0.04 K/mm3 (0.01-0.08); BASOPHILS PERCENT AUTO 0.3 % (0.1-1.2); EOSINOPHILS ABSOLUTE AUTO 0.37 K/mm3 (0.04-0.36); EOSINOPHILS PERCENT AUTO 2.4 (0.7-5.8); HEMATOCRIT 39.2 % (34.1-44.9); IMMATURE GRAN ABSOLUTE AUTO 0.06 K/mm3 (0.00-0.10); IMMATURE GRAN PERCENT AUTO 0.4 % (<=1.0); LYMPHOCYTES ABSOLUTE AUTO 3.02 K/mm3 (1.18-3.74); MEAN CORPUSCULAR HEMOGLOBIN 35.3 pg (25.6-32.2); MEAN CORPUSCULAR HGB CONC 33.2 g/dl (32.2-35.5); MEAN CORPUSCULAR VOLUME 106.5 fl (79.4-94.8); MEAN PLATELET VOLUME 10.6 fl (9.4-12.3); MONOCYTES ABSOLUTE AUTO 1.44 K/mm3 (0.24-0.36); MONOCYTES PERCENT AUTO 9.5 % (4.7-12.5); NEUTROPHILS ABSOLUTE AUTO 10.19 K/mm3 (1.56-6.13); NEUTROPHILS PERCENT AUTO 67.4 % (34.0-71.1); PLATELET COUNT,PLT 414 K/mm3 (182-369); RED BLOOD CELL COUNT 3.68 M/mm3 (3.98-5.22); WHITE BLOOD CELL COUNT,WBC 15.12 K/mm3 (3.98-10.04)
[2022-10-14] MEDS: Folic Acid 1 MG Tab PO SCH (08:03)
[2022-10-14] MEDS: Enoxaparin 40 MG/0.4 ML Syringe SUBCUT SCH (08:03)
[2022-10-14] MEDS: chlordiazePOXIDE 10 MG Cap PO SCH (08:03)
[2022-10-14] MEDS: Calcium Carbonate/Vitamin D3 600 MG-200 Units Tab PO SCH ×2 (08:03→18:46)
[2022-10-14] MEDS: Multivitamin Tab PO SCH (08:04)
[2022-10-14] MEDS: Thiamine 100 MG Tab PO SCH (08:05)
[2022-10-14] MEDS: Nicotine 14 MG/24 Hr Patch TRDERM SCH (08:05)
[2022-10-14] MEDS: cloNIDine 0.1 MG Tab PO SCH ×2 (08:08→20:47)
[2022-10-14] MEDS ORDERED: cefTRIAXone 1 GM in Sodium Chloride 0.9% 100 ML IV SCH (11:00)
[2022-10-14] MEDS: Cefdinir 300 MG Cap PO SCH ×2 (11:27→20:48)
[2022-10-15] MEDS: oxyCODONE 5 MG Tab PO PRN ×2 (05:51→20:03)
[2022-10-15] MEDS: Pantoprazole 40 MG Tab.CR PO SCH (05:51)
[2022-10-15 06:35] LABS: ANION GAP 17.7 (5-15); CALCIUM 9.4 mg/dL (8.5-10.1); CREATININE 0.6 mg/dL (0.55-1.02); EST CRCL DRUG DOSING (CG) 117.08 mL/min; POTASSIUM,K 3.7 mEq/L (3.5-5.1)
[2022-10-15 06:54] LABS: BASOPHILS ABSOLUTE AUTO 0.04 K/mm3 (0.01-0.08); BASOPHILS PERCENT AUTO 0.3 % (0.1-1.2); EOSINOPHILS ABSOLUTE AUTO 0.55 K/mm3 (0.04-0.36); EOSINOPHILS PERCENT AUTO 4.1 (0.7-5.8); HEMATOCRIT 38.7 % (34.1-44.9); HEMOGLOBIN 12.6 gm/dl (11.2-15.7); IMMATURE GRAN ABSOLUTE AUTO 0.04 K/mm3 (0.00-0.10); IMMATURE GRAN PERCENT AUTO 0.3 % (<=1.0); LYMPHOCYTES ABSOLUTE AUTO 2.96 K/mm3 (1.18-3.74); LYMPHOCYTES PERCENT AUTO 22.3 % (19.3-51.7); MEAN CORPUSCULAR HEMOGLOBIN 34.9 pg (25.6-32.2); MEAN CORPUSCULAR HGB CONC 32.6 g/dl (32.2-35.5); MEAN CORPUSCULAR VOLUME 107.2 fl (79.4-94.8); MEAN PLATELET VOLUME 10.8 fl (9.4-12.3); MONOCYTES ABSOLUTE AUTO 1.17 K/mm3 (0.24-0.36); MONOCYTES PERCENT AUTO 8.8 % (4.7-12.5); NEUTROPHILS ABSOLUTE AUTO 8.54 K/mm3 (1.56-6.13); NEUTROPHILS PERCENT AUTO 64.2 % (34.0-71.1); PLATELET COUNT,PLT 424 K/mm3 (182-369); RED BLOOD CELL COUNT 3.61 M/mm3 (3.98-5.22)
[2022-10-15] MEDS: chlordiazePOXIDE 10 MG Cap PO SCH (09:40)
[2022-10-15] MEDS: Thiamine 100 MG Tab PO SCH (09:40)
[2022-10-15] MEDS: cloNIDine 0.1 MG Tab PO SCH ×2 (09:40→20:03)
[2022-10-15] MEDS: Cefdinir 300 MG Cap PO SCH ×2 (09:40→20:02)
[2022-10-15] MEDS: Multivitamin Tab PO SCH (09:40)
[2022-10-15] MEDS: Folic Acid 1 MG Tab PO SCH (09:40)
[2022-10-15] MEDS: Enoxaparin 40 MG/0.4 ML Syringe SUBCUT SCH (09:41)
[2022-10-15] MEDS: Nicotine 14 MG/24 Hr Patch TRDERM SCH (09:41)
[2022-10-15] MEDS: Calcium Carbonate/Vitamin D3 600 MG-200 Units Tab PO SCH ×2 (09:48→16:24)
[2022-10-15] MEDS: Acetaminophen 325 MG Tab PO PRN (16:25)
[2022-10-16] MEDS: Acetaminophen 325 MG Tab PO PRN ×3 (00:19→22:00)
[2022-10-16] MEDS: oxyCODONE 5 MG Tab PO PRN ×4 (04:42→23:52)
[2022-10-16 05:29] LABS: BASOPHILS ABSOLUTE AUTO 0.03 K/mm3 (0.01-0.08); BASOPHILS PERCENT AUTO 0.2 % (0.1-1.2); EOSINOPHILS ABSOLUTE AUTO 0.51 K/mm3 (0.04-0.36); EOSINOPHILS PERCENT AUTO 3.4 (0.7-5.8); HEMATOCRIT 36.6 % (34.1-44.9); HEMOGLOBIN 12.2 gm/dl (11.2-15.7); IMMATURE GRAN ABSOLUTE AUTO 0.04 K/mm3 (0.00-0.10); IMMATURE GRAN PERCENT AUTO 0.3 % (<=1.0); LYMPHOCYTES ABSOLUTE AUTO 3.25 K/mm3 (1.18-3.74); LYMPHOCYTES PERCENT AUTO 21.4 % (19.3-51.7); MEAN CORPUSCULAR HEMOGLOBIN 35.1 pg (25.6-32.2); MEAN CORPUSCULAR HGB CONC 33.3 g/dl (32.2-35.5); MEAN CORPUSCULAR VOLUME 105.2 fl (79.4-94.8); MEAN PLATELET VOLUME 10.7 fl (9.4-12.3); MONOCYTES ABSOLUTE AUTO 1.12 K/mm3 (0.24-0.36); MONOCYTES PERCENT AUTO 7.4 % (4.7-12.5); NEUTROPHILS ABSOLUTE AUTO 10.21 K/mm3 (1.56-6.13); NEUTROPHILS PERCENT AUTO 67.3 % (34.0-71.1); PLATELET COUNT,PLT 492 K/mm3 (182-369); RED BLOOD CELL COUNT 3.48 M/mm3 (3.98-5.22); WHITE BLOOD CELL COUNT,WBC 15.16 K/mm3 (3.98-10.04)
[2022-10-16] MEDS: Calcium Carbonate/Vitamin D3 600 MG-200 Units Tab PO SCH ×2 (06:12→17:25)
[2022-10-16] MEDS: Pantoprazole 40 MG Tab.CR PO SCH (06:12)
[2022-10-16 06:41] LABS: ANION GAP 19.8 (5-15); BUN/CREATININE RATIO 18.3 (14-18); CALCIUM 9.4 mg/dL (8.5-10.1); CREATININE 0.6 mg/dL (0.55-1.02); EST CRCL DRUG DOSING (CG) 117.08 mL/min; POTASSIUM,K 3.8 mEq/L (3.5-5.1)
[2022-10-16] MEDS: Cefdinir 300 MG Cap PO SCH ×2 (09:32→21:55)
[2022-10-16] MEDS: Enoxaparin 40 MG/0.4 ML Syringe SUBCUT SCH (09:32)
[2022-10-16] MEDS: Thiamine 100 MG Tab PO SCH (09:32)
[2022-10-16] MEDS: cloNIDine 0.1 MG Tab PO SCH ×2 (09:32→21:55)
[2022-10-16] MEDS: Multivitamin Tab PO SCH (09:32)
[2022-10-16] MEDS: chlordiazePOXIDE 10 MG Cap PO SCH (09:32)
[2022-10-16] MEDS: Folic Acid 1 MG Tab PO SCH (09:33)
[2022-10-16] MEDS: Nicotine 14 MG/24 Hr Patch TRDERM SCH (09:33)
[2022-10-17] MEDS: Acetaminophen 325 MG Tab PO PRN (05:00)
[2022-10-17] MEDS: Pantoprazole 40 MG Tab.CR PO SCH (05:00)
[2022-10-17] MEDS: Calcium Carbonate/Vitamin D3 600 MG-200 Units Tab PO SCH ×3 (05:00→17:20)
[2022-10-17] MEDS: oxyCODONE 5 MG Tab PO PRN ×3 (06:59→21:46)
[2022-10-17] MEDS: cloNIDine 0.1 MG Tab PO SCH ×4 (09:29→20:17)
[2022-10-17] MEDS: Enoxaparin 40 MG/0.4 ML Syringe SUBCUT SCH (09:29)
[2022-10-17] MEDS: Cefdinir 300 MG Cap PO SCH ×2 (09:29→20:17)
[2022-10-17] MEDS: chlordiazePOXIDE 10 MG Cap PO SCH (09:30)
[2022-10-17] MEDS: Folic Acid 1 MG Tab PO SCH (09:30)
[2022-10-17] MEDS: Multivitamin Tab PO SCH (09:30)
[2022-10-17] MEDS: Thiamine 100 MG Tab PO SCH (09:30)
[2022-10-17] MEDS: Nicotine 14 MG/24 Hr Patch TRDERM SCH (09:30)
[2022-10-17] MEDS: LORazepam 1 MG Tab PO SCH (11:46)
[2022-10-17 13:27] LABS: BASOPHILS ABSOLUTE AUTO 0.03 K/mm3 (0.01-0.08); BASOPHILS PERCENT AUTO 0.2 % (0.1-1.2); EOSINOPHILS PERCENT AUTO 5.6 (0.7-5.8); HEMATOCRIT 37.3 % (34.1-44.9); HEMOGLOBIN 12.4 gm/dl (11.2-15.7); IMMATURE GRAN ABSOLUTE AUTO 0.03 K/mm3 (0.00-0.10); IMMATURE GRAN PERCENT AUTO 0.2 % (<=1.0); LYMPHOCYTES ABSOLUTE AUTO 1.94 K/mm3 (1.18-3.74); LYMPHOCYTES PERCENT AUTO 13.6 % (19.3-51.7); MEAN CORPUSCULAR HEMOGLOBIN 35.2 pg (25.6-32.2); MEAN CORPUSCULAR HGB CONC 33.2 g/dl (32.2-35.5); MEAN PLATELET VOLUME 10.4 fl (9.4-12.3); MONOCYTES ABSOLUTE AUTO 0.86 K/mm3 (0.24-0.36); NEUTROPHILS ABSOLUTE AUTO 10.62 K/mm3 (1.56-6.13); NEUTROPHILS PERCENT AUTO 74.4 % (34.0-71.1); PLATELET COUNT,PLT 561 K/mm3 (182-369); RED BLOOD CELL COUNT 3.52 M/mm3 (3.98-5.22); WHITE BLOOD CELL COUNT,WBC 14.28 K/mm3 (3.98-10.04)
[2022-10-17] MEDS ORDERED: cloNIDine 0.1 MG Tab PO SCH (14:00)
[2022-10-17] MEDS: busPIRone 5 MG Tab PO SCH ×2 (14:43→20:17)
[2022-10-18] MEDS: Acetaminophen 325 MG Tab PO PRN ×3 (03:07→18:06)
[2022-10-18] MEDS: oxyCODONE 5 MG Tab PO PRN ×3 (04:16→18:07)
[2022-10-18] MEDS: cloNIDine 0.1 MG Tab PO SCH ×3 (04:18→20:42)
[2022-10-18 05:50] LABS: ANION GAP 14.8 (5-15); BUN/CREATININE RATIO 11.7 (14-18); CALCIUM 9.3 mg/dL (8.5-10.1); CREATININE 0.6 mg/dL (0.55-1.02); EST CRCL DRUG DOSING (CG) 117.08 mL/min; POTASSIUM,K 3.8 mEq/L (3.5-5.1)
[2022-10-18] MEDS: Calcium Carbonate/Vitamin D3 600 MG-200 Units Tab PO SCH (06:36)
[2022-10-18] MEDS: Enoxaparin 40 MG/0.4 ML Syringe SUBCUT SCH (09:16)
[2022-10-18] MEDS: chlordiazePOXIDE 10 MG Cap PO SCH (09:16)
[2022-10-18] MEDS: Cefdinir 300 MG Cap PO SCH ×2 (09:17→20:41)
[2022-10-18] MEDS: Multivitamin Tab PO SCH (09:17)
[2022-10-18] MEDS: Nicotine 14 MG/24 Hr Patch TRDERM SCH (09:17)
[2022-10-18] MEDS: Folic Acid 1 MG Tab PO SCH (09:17)
[2022-10-18] MEDS: busPIRone 5 MG Tab PO SCH ×2 (09:17→20:42)
[2022-10-18] MEDS: Thiamine 100 MG Tab PO SCH (09:17)
[2022-10-18] MEDS: Pantoprazole 40 MG Tab.CR PO SCH (15:12)
[2022-10-19] MEDS: oxyCODONE 5 MG Tab PO PRN ×2 (01:06→10:03)
[2022-10-19] MEDS: Acetaminophen 325 MG Tab PO PRN ×2 (01:07→10:02)
[2022-10-19] MEDS: cloNIDine 0.1 MG Tab PO SCH ×2 (04:19→13:11)
[2022-10-19] MEDS: Pantoprazole 40 MG Tab.CR PO SCH ×2 (04:20→13:49)
[2022-10-19 09:14] LABS: A/G RATIO 0.6 (1-2); ALBUMIN 2.8 g/dl (3.4-5.0); BILIRUBIN TOTAL 0.3 mg/dL (0.2-1.0); CALCIUM 9.2 mg/dL (8.5-10.1); CREATININE 0.6 mg/dL (0.55-1.02); EST CRCL DRUG DOSING (CG) 117.08 mL/min; PROTEIN TOTAL,TP 7.3 g/dl (6.4-8.2)
[2022-10-19] MEDS: Enoxaparin 40 MG/0.4 ML Syringe SUBCUT SCH (09:41)
[2022-10-19] MEDS: chlordiazePOXIDE 10 MG Cap PO SCH (09:42)
[2022-10-19] MEDS: Nicotine 14 MG/24 Hr Patch TRDERM SCH (09:42)
[2022-10-19] MEDS: Cefdinir 300 MG Cap PO SCH (09:42)
[2022-10-19] MEDS: Folic Acid 1 MG Tab PO SCH (09:42)
[2022-10-19] MEDS: busPIRone 5 MG Tab PO SCH (09:42)
[2022-10-19] MEDS: Multivitamin Tab PO SCH (09:42)
[2022-10-19] MEDS: Thiamine 100 MG Tab PO SCH (09:42)
[2022-10-19 09:56] LABS: BASOPHILS ABSOLUTE AUTO 0.02 K/mm3 (0.01-0.08); BASOPHILS PERCENT AUTO 0.2 % (0.1-1.2); EOSINOPHILS ABSOLUTE AUTO 1.53 K/mm3 (0.04-0.36); EOSINOPHILS PERCENT AUTO 11.9 (0.7-5.8); HEMATOCRIT 36.9 % (34.1-44.9); HEMOGLOBIN 11.9 gm/dl (11.2-15.7); IMMATURE GRAN ABSOLUTE AUTO 0.02 K/mm3 (0.00-0.10); IMMATURE GRAN PERCENT AUTO 0.2 % (<=1.0); LYMPHOCYTES ABSOLUTE AUTO 2.34 K/mm3 (1.18-3.74); LYMPHOCYTES PERCENT AUTO 18.2 % (19.3-51.7); MEAN CORPUSCULAR HEMOGLOBIN 34.7 pg (25.6-32.2); MEAN CORPUSCULAR HGB CONC 32.2 g/dl (32.2-35.5); MEAN CORPUSCULAR VOLUME 107.6 fl (79.4-94.8); MEAN PLATELET VOLUME 11.2 fl (9.4-12.3); MONOCYTES ABSOLUTE AUTO 0.75 K/mm3 (0.24-0.36); MONOCYTES PERCENT AUTO 5.8 % (4.7-12.5); NEUTROPHILS ABSOLUTE AUTO 8.19 K/mm3 (1.56-6.13); NEUTROPHILS PERCENT AUTO 63.7 % (34.0-71.1); PLATELET COUNT,PLT 606 K/mm3 (182-369); RED BLOOD CELL COUNT 3.43 M/mm3 (3.98-5.22); WHITE BLOOD CELL COUNT,WBC 12.85 K/mm3 (3.98-10.04)
[2022-10-19] MEDS ORDERED: amLODIPine 5 MG Tab PO SCH (11:30)
[2022-10-19 12:54] VITALS: BP 132/99; PULSE 124
== END 2022-10-19 16:30 | disposition home or self-care (01) | DRG 896 ==
LOC: JD.ED 14:06 → JD.ICU 17:46 → JD.MS 10-09 19:49
PROVIDERS: ADMIT Internal Medicine; ATTEND Internal Medicine
DX: F10.121 Alcohol abuse with intoxication delirium (principal); E43 Unspecified severe protein-calorie malnutrition; N30.00 Acute cystitis without hematuria; G62.9 Polyneuropathy, unspecified; E87.6 Hypokalemia; F41.9 Anxiety disorder, unspecified; F32.A Depression, unspecified; R29.6 Repeated falls; R33.9 Retention of urine, unspecified; M46.1 Sacroiliitis, not elsewhere classified; F10.139 Alcohol abuse with withdrawal, unspecified; B96.1 Klebsiella pneumoniae [K. pneumoniae] as the cause of diseases classified elsewhere; G43.909 Migraine, unspecified, not intractable, without status migrainosus; E83.42 Hypomagnesemia; Z79.899 Other long term (current) drug therapy; Z68.25 Body mass index [BMI] 25.0-25.9, adult
CPT/HCPCS: 36415; 51701; 51798; 70450; 70450-26; 70553; 70553-26; 72100; 72100-26; 72131; 72131-26; 72192; 72192-26; 73562-26-LT; 73562-LT; 73610-26-LT; 73610-LT; 80048; 80053; 80143; 80179; 80306; 80307; 81001; 82140; 82330; 82607; 83690; 83735; 84443; 84484; 85025; 85027; 86140; 87086; 87088; 87186; 93005; 93010; 97110-GP; 97116-GP; 97162-GP; 97166-GO; 97530-GO; 97530-GP; 99231; 99232; 99239; 99284; A9270-GY; A9577; C9113; J1650; J2060; J2405; J3010; J3411; J3420; J3475; J3480; J3490; J7030

== ENCOUNTER 2023-01-06 09:17 | Emergency (ER) | payer SELFPAY ==
[2023-01-06 10:21] VITALS: BP 109/80; PULSE 88
== END 2023-01-06 10:25 | disposition home or self-care (01) ==
LOC: JD.ED 09:17
DX: M79.604 Pain in right leg (principal); M79.605 Pain in left leg; M79.602 Pain in left arm; M79.601 Pain in right arm
CPT/HCPCS: 99283

== ENCOUNTER 2023-08-29 19:20 | Inpatient (IN) | payer SELFPAY ==
[2023-08-29 20:18] LABS: BASOPHILS ABSOLUTE AUTO 0.1 K/mm3 (0.0-0.2); BASOPHILS PERCENT AUTO 0.3 % (0.0-1.0); EOSINOPHILS PERCENT AUTO 9.7 % (0.0-6.0); HEMATOCRIT 43.1 % (37.0-47.0); HEMOGLOBIN 15.2 gm/dl (12.0-16.0); IMMATURE GRAN ABSOLUTE AUTO 0.16 K/mm3 (0.00-0.05); IMMATURE GRAN PERCENT AUTO 0.8 % (0.0-0.4); LYMPHOCYTES ABSOLUTE AUTO 1.6 K/mm3 (1.0-4.8); LYMPHOCYTES PERCENT AUTO 7.8 % (24.0-44.0); MEAN CORPUSCULAR HEMOGLOBIN 35.3 pg (28.0-32.0); MEAN CORPUSCULAR HGB CONC 35.3 g/dl (32.0-36.0); MEAN CORPUSCULAR VOLUME 100.2 fl (83.0-99.0); MEAN PLATELET VOLUME 9.8 fl (9.4-12.3); MONOCYTES ABSOLUTE AUTO 1.2 K/mm3 (0.0-0.8); NEUTROPHILS ABSOLUTE AUTO 15.7 K/mm3 (1.8-7.7); NEUTROPHILS PERCENT AUTO 75.4 % (41.0-71.0); PLATELET COUNT,PLT 310 K/mm3 (150-400); WHITE BLOOD CELL COUNT,WBC 20.84 K/mm3 (3.9-11.3)
[2023-08-29] MEDS: OLANZapine 5 MG Tab PO ONE (20:30)
[2023-08-29 20:48] LABS: ANION GAP 29.3 (5-15); BUN/CREATININE RATIO 10.9 (14-18); CALCIUM 9.5 mg/dL (8.5-10.1); CREATININE 3.5 mg/dL (0.55-1.02); EST CRCL DRUG DOSING (CG) 18.91 mL/min; POTASSIUM,K 3.3 mEq/L (3.5-5.1); PROTEIN TOTAL,TP 8.2 g/dl (6.4-8.2); TSH 1.565 uIU/mL (0.358-3.74)
[2023-08-29] MEDS: Sodium Chloride 0.9% 10 ML Syringe FLUSH PRN (21:52)
[2023-08-29] MEDS: Sodium Chloride 0.9% 1,000 ML IV ONE ×2 (21:52→23:08)
[2023-08-29 22:52] LABS: BARBITURATE SCREEN,URINE NEGATIVE (CUTOFF=200); BENZODIAZEPINES SCREEN,URINE NEGATIVE (CUTOFF=150); BUPRENORPHINE SCREEN,URINE NEGATIVE (CUTOFF=10); METHADONE SCREEN, URINE NEGATIVE (CUTOFF=200); METHAMPHETAMINES SCREEN, URINE PRESUMPTIVE POSITIVE (CUTOFF=500); OXYCODONE SCREEN,URINE NEGATIVE (CUT0FF=100); THC SCREEN,URINE 20 NG/ML NEGATIVE (CUTOFF=50)
[2023-08-29 22:53] LABS: AMPHETAMINES SCREEN, URINE PRESUMPTIVE POSITIVE (CUTOFF=500)
[2023-08-29] MEDS: Potassium Chloride 10 MEQ in Premix Bag 1 BAG IV SCH (23:08)
[2023-08-29 23:51] LABS: BASOPHILS ABSOLUTE AUTO 0.1 K/mm3 (0.0-0.2); BASOPHILS PERCENT AUTO 0.2 % (0.0-1.0); EOSINOPHILS ABSOLUTE AUTO 0.7 K/mm3 (0.0-0.4); EOSINOPHILS PERCENT AUTO 3.4 % (0.0-6.0); HEMATOCRIT 37.2 % (37.0-47.0); IMMATURE GRAN PERCENT AUTO 0.5 % (0.0-0.4); LYMPHOCYTES ABSOLUTE AUTO 2.6 K/mm3 (1.0-4.8); LYMPHOCYTES PERCENT AUTO 12.7 % (24.0-44.0); MEAN CORPUSCULAR HEMOGLOBIN 35.2 pg (28.0-32.0); MEAN CORPUSCULAR HGB CONC 35.5 g/dl (32.0-36.0); MEAN CORPUSCULAR VOLUME 99.2 fl (83.0-99.0); MEAN PLATELET VOLUME 9.9 fl (9.4-12.3); MONOCYTES ABSOLUTE AUTO 1.7 K/mm3 (0.0-0.8); MONOCYTES PERCENT AUTO 8.4 % (0.0-8.0); NEUTROPHILS ABSOLUTE AUTO 15.3 K/mm3 (1.8-7.7); NEUTROPHILS PERCENT AUTO 74.8 % (41.0-71.0); PLATELET COUNT,PLT 269 K/mm3 (150-400); RED BLOOD CELL COUNT 3.75 M/mm3 (4.10-5.30)
[2023-08-29 23:58] LABS: HEMOGLOBIN 13.2 gm/dl (12.0-16.0)
[2023-08-30 00:15] LABS: A/G RATIO 0.9 (1-2); ALBUMIN 3.2 g/dl (3.4-5.0); ANION GAP 22.2 (5-15); BILIRUBIN TOTAL 1.3 mg/dL (0.2-1.0); BUN/CREATININE RATIO 12.3 (14-18); EST CRCL DRUG DOSING (CG) 22.06 mL/min; POTASSIUM,K 3.2 mEq/L (3.5-5.1); PROTEIN TOTAL,TP 6.7 g/dl (6.4-8.2)
[2023-08-30 00:31] LABS: CALCIUM 7.6 mg/dL (8.5-10.1)
[2023-08-30] MEDS: Lactated Ringers 1,000 ML IV ONE (03:04)
[2023-08-30 06:32] LABS: BASOPHILS ABSOLUTE AUTO 0.1 K/mm3 (0.0-0.2); BASOPHILS PERCENT AUTO 0.3 % (0.0-1.0); EOSINOPHILS PERCENT AUTO 0.3 % (0.0-6.0); HEMATOCRIT 39.3 % (37.0-47.0); IMMATURE GRAN ABSOLUTE AUTO 0.07 K/mm3 (0.00-0.05); IMMATURE GRAN PERCENT AUTO 0.5 % (0.0-0.4); LYMPHOCYTES ABSOLUTE AUTO 3.6 K/mm3 (1.0-4.8); LYMPHOCYTES PERCENT AUTO 23.4 % (24.0-44.0); MEAN CORPUSCULAR HEMOGLOBIN 35.2 pg (28.0-32.0); MEAN CORPUSCULAR HGB CONC 35.6 g/dl (32.0-36.0); MEAN CORPUSCULAR VOLUME 98.7 fl (83.0-99.0); MEAN PLATELET VOLUME 9.9 fl (9.4-12.3); MONOCYTES PERCENT AUTO 6.5 % (0.0-8.0); NEUTROPHILS ABSOLUTE AUTO 10.6 K/mm3 (1.8-7.7); PLATELET COUNT,PLT 258 K/mm3 (150-400); RED BLOOD CELL COUNT 3.98 M/mm3 (4.10-5.30); WHITE BLOOD CELL COUNT,WBC 15.38 K/mm3 (3.9-11.3)
[2023-08-30 06:52] LABS: A/G RATIO 0.9 (1-2); ANION GAP 15.6 (5-15); BILIRUBIN TOTAL 1.4 mg/dL (0.2-1.0); BUN/CREATININE RATIO 14.3 (14-18); CALCIUM 7.5 mg/dL (8.5-10.1); CREATININE 2.3 mg/dL (0.55-1.02); EST CRCL DRUG DOSING (CG) 28.78 mL/min; POTASSIUM,K 3.6 mEq/L (3.5-5.1); PROTEIN TOTAL,TP 6.4 g/dl (6.4-8.2)
[2023-08-30] MEDS: Lactated Ringers 1,000 ML IV SCH (07:46)
[2023-08-30] MEDS ORDERED: Ondansetron 4 MG/2 ML SDV IV PRN (09:12)
[2023-08-30] MEDS ORDERED: Acetaminophen 325 MG Tab PO PRN (09:12)
[2023-08-30] MEDS: Heparin Sodium 5,000 Units/ML Vial SUBCUT SCH (11:03)
[2023-08-30] MEDS: Nicotine Polacrilex 2 MG Gum CHEW PRN (20:28)
[2023-08-30] MEDS: Thiamine 100 MG Tab PO SCH (20:28)
[2023-08-31 04:57] LABS: HEMATOCRIT 34.5 % (37.0-47.0); HEMOGLOBIN 12.3 gm/dl (12.0-16.0); MEAN CORPUSCULAR HEMOGLOBIN 35.3 pg (28.0-32.0); MEAN CORPUSCULAR HGB CONC 35.7 g/dl (32.0-36.0); MEAN CORPUSCULAR VOLUME 99.1 fl (83.0-99.0); MEAN PLATELET VOLUME 10.1 fl (9.4-12.3); PLATELET COUNT,PLT 222 K/mm3 (150-400); RED BLOOD CELL COUNT 3.48 M/mm3 (4.10-5.30); WHITE BLOOD CELL COUNT,WBC 9.01 K/mm3 (3.9-11.3)
[2023-08-31 05:30] LABS: A/G RATIO 0.8 (1-2); ALBUMIN 2.6 g/dl (3.4-5.0); ANION GAP 15.3 (5-15); BILIRUBIN TOTAL 0.5 mg/dL (0.2-1.0); BUN/CREATININE RATIO 32.9 (14-18); CALCIUM 8.3 mg/dL (8.5-10.1); CREATININE 0.7 mg/dL (0.55-1.02); EST CRCL DRUG DOSING (CG) 98.71 mL/min; MAGNESIUM 1.6 mg/dL (1.8-2.4); POTASSIUM,K 3.3 mEq/L (3.5-5.1)
[2023-08-31] MEDS: Potassium Chloride 10 MEQ in Premix Bag 1 BAG IV SCH (07:31)
[2023-08-31 08:16] VITALS: BP 129/81; PULSE 75
[2023-08-31] MEDS: Potassium Chloride 20 MEQ Tab.ER PO SCH (08:29)
[2023-08-31] MEDS: Magnesium Sulfate/Water 2 GM in Premix Bag 1 BAG IV ONE (13:50)
== END 2023-08-31 13:45 | disposition home or self-care (01) | DRG 683 ==
LOC: JD.ED 19:20 → EEVIPCON 08-30 08:13 → JD.MS 08-30 08:13
PROVIDERS: ADMIT Internal Medicine; ATTEND Internal Medicine
DX: N17.9 Acute kidney failure, unspecified (principal); E87.1 Hypo-osmolality and hyponatremia; R44.3 Hallucinations, unspecified; E86.0 Dehydration; F10.129 Alcohol abuse with intoxication, unspecified; G89.29 Other chronic pain; J45.909 Unspecified asthma, uncomplicated; D72.825 Bandemia; F15.10 Other stimulant abuse, uncomplicated; E87.6 Hypokalemia; E83.42 Hypomagnesemia; G43.909 Migraine, unspecified, not intractable, without status migrainosus; F17.210 Nicotine dependence, cigarettes, uncomplicated; Z79.899 Other long term (current) drug therapy
CPT/HCPCS: 36415; 73630-26-LT; 73630-LT; 80053; 80143; 80179; 80306; 80307; 82947; 83735; 84443; 84703; 85025; 85027; 96361; 96365; 96366; 97161-GP; 99284; 99285-25; A9270-GY; J1644; J3480; J3490; J7030; J7120

== ENCOUNTER 2024-01-14 18:36 | Emergency (ER) | payer SELFPAY ==
[2024-01-14 19:26] LABS: BASOPHILS ABSOLUTE AUTO 0.1 K/mm3 (0.0-0.2); BASOPHILS PERCENT AUTO 0.5 % (0.0-1.0); EOSINOPHILS ABSOLUTE AUTO 0.1 K/mm3 (0.0-0.4); EOSINOPHILS PERCENT AUTO 1.4 % (0.0-6.0); HEMATOCRIT 45.7 % (37.0-47.0); HEMOGLOBIN 15.3 gm/dl (12.0-16.0); IMMATURE GRAN ABSOLUTE AUTO 0.02 K/mm3 (0.00-0.05); IMMATURE GRAN PERCENT AUTO 0.2 % (0.0-0.4); LYMPHOCYTES ABSOLUTE AUTO 3.1 K/mm3 (1.0-4.8); LYMPHOCYTES PERCENT AUTO 31.1 % (24.0-44.0); MEAN CORPUSCULAR HEMOGLOBIN 31.3 pg (28.0-32.0); MEAN CORPUSCULAR HGB CONC 33.5 g/dl (32.0-36.0); MEAN CORPUSCULAR VOLUME 93.5 fl (83.0-99.0); MEAN PLATELET VOLUME 9.7 fl (9.4-12.3); MONOCYTES ABSOLUTE AUTO 0.5 K/mm3 (0.0-0.8); MONOCYTES PERCENT AUTO 4.6 % (0.0-8.0); NEUTROPHILS ABSOLUTE AUTO 6.3 K/mm3 (1.8-7.7); NEUTROPHILS PERCENT AUTO 62.2 % (41.0-71.0); PLATELET COUNT,PLT 314 K/mm3 (150-400); RED BLOOD CELL COUNT 4.89 M/mm3 (4.10-5.30); WHITE BLOOD CELL COUNT,WBC 10.04 K/mm3 (3.9-11.3)
[2024-01-14 19:56] LABS: ALANINE AMINOTRANSFERASE,ALT 35 U/L (14-59); ALKALINE PHOSPHATASE 59 U/L (46-116); ANION GAP 11.8 (5-15); ASPARTATE AMNIOTRANSFERASE,AST 55 U/L (15-37); BILIRUBIN TOTAL 0.3 mg/dL (0.2-1.0); BLOOD UREA NITROGEN,BUN 9 mg/dL (7-18); BUN/CREATININE RATIO 11.3 (14-18); C-REACTIVE PROTEIN <0.05 mg/dL (<0.30); CALCIUM 9.2 mg/dL (8.5-10.1); CARBON DIOXIDE,CO2 31 mEq/L (21-32); CHLORIDE,CL 99 mEq/L (98-107); CREATININE 0.8 mg/dL (0.55-1.02); EST CRCL DRUG DOSING (CG) 86.37 mL/min; ESTIMATED GFR 100 mL/min (>60); GLUCOSE RANDOM 81 mg/dL (70-99); MAGNESIUM 1.8 mg/dL (1.8-2.4); POTASSIUM,K 3.8 mEq/L (3.5-5.1); SODIUM,NA 138 mEq/L (136-145)
[2024-01-14] MEDS: Sulfamethoxazole/Trimethoprim 800-160 MG Tab PO ONE ×2 (20:00→22:32)
[2024-01-14 21:31] LABS: APPEARANCE,URINE CLEAR (Clear); BILIRUBIN,URINE NEGATIVE (Negative); COLOR,URINE LIGHT YELLOW (Yellow); GLUCOSE,URINE NEGATIVE (Negative); KETONES,URINE NEGATIVE (Negative); LEUKOCYTE ESTERASE,URINE TRACE (Negative); NITRITE,URINE NEGATIVE (Negative); OCCULT BLOOD,URINE NEGATIVE (Negative); PH,URINE 7.5 (5.0-8.0); PROTEIN,URINE NEGATIVE (Negative); UROBILINOGEN,URINE 0.2 (0.2-1.0)
[2024-01-14 22:02] LABS: RBC,URINE 0-5 /hpf (0-5)
[2024-01-14 22:03] LABS: BACTERIA,URINE FEW /hpf (FEW); MUCUS,URINE NOT SEEN /hpf (FEW)
[2024-01-14 22:37] VITALS: BP 120/79; PULSE 74
== END 2024-01-14 22:30 | disposition home or self-care (01) ==
LOC: JD.ED 18:36
DX: K02.9 Dental caries, unspecified (principal); L72.3 Sebaceous cyst; J45.909 Unspecified asthma, uncomplicated
CPT/HCPCS: 36415; 80053; 81001; 83735; 84703; 85025; 86140; 87086; 99283; A9270-GY